=== PATIENT | female | born 1990 | race Caucasian/White ===

== ENCOUNTER 2018-08-09 18:10 | Emergency (ER) | payer OTHER ==
[2018-08-09 18:16] VITALS: BP 109/70; PULSE 88; TEMP 98.8; BMI 25.4
--- NOTE | 2018-08-09 19:33 | PDOC ---
History of Present Illness - General Chief Complaint: Vaginal Bleeding Stated Complaint: 13 WEEKS -BLEEDING Time Seen by Provider: 08/09/18 19:32 History Source: Patient - History of Present Illness Initial Comments: 08/09/18 19:51 28 yr old woman A0 at 13wks (LMP May 08 2018) presents with 1 week of intermittent vaginal bleeding, most recent episode 3 hours ago consisting of clots and bright red blood a/w left lower abdominal cramping. She was seen by ob /infrastructure consultant's office last week and testing for "vaginal infections" and told them about the bleeding, she was told everything was normal but the bleeding today was more than previous so she presented to the ED. She had heart testing last week where she heard the heart beat. denies trauma, fevers, n/v, constipation, diarrhea, cough, sick contacts, headaches, LE edema, dizziness. Prenatals are her only medications. Surghx: denies Sochx: denies smoking, etoh and illicit drug use Pmhx: diet controlled HLD Fmhx: father with DM Allergies: NKDA Past History - Travel Traveled outside of the country in the last 30 days: No Close contact w/someone who was outside of country & ill: No - Past Medical History Allergies/Adverse Reactions: Allergies Allergy/AdvReac Type Severity Reaction Status Date / Time No Known Allergies Allergy Verified 08/09/18 18:16 COPD: No - Suicide/Smoking/Psychosocial Hx Smoking History: Never smoked Review of Systems - Review of Systems Constitutional: No: Diaphoresis, Fever, Loss of Appetite HEENTM: No: Tinnitus, Difficulty Swallowing Respiratory: No: Shortness of Breath, Productive cough Cardiac (ROS): No: Chest Pain, Edema, Lightheadedness, Palpitations, Chest Tightness ABD/GI: Yes: Abdominal cramping. No: Abdominal Distended, Constipated, Diarrhea , Difficulty Swallowing, Nausea, Poor Appetite, Poor Fluid Intake, Vomiting : No: Dysuria, Frequency, Flank Pain, Hematuria Musculoskeletal: No: Joint Pain, Muscle Pain, Muscle Weakness, Neck Pain Integumentary: No: Bruising, Lesions Neurological: No: Headache, Paresthesia, Weakness, Unsteady Gait, Dizziness *Physical Exam - Vital Signs Last Vital Signs Temp Pulse Resp BP Pulse Ox 98.8 F 88 18 109/70 100 08/09/18 18:13 02/16/19 18:13 08/09/18 18:13 08/09/18 18:13 08/09/18 18:13 - Physical Exam General Appearance: Yes: Appropriately Dressed HEENT: positive: EOMI, LAW, Pharynx Normal Neck: positive: Trachea midline, Supple. negative: Lymphadenopathy (R), Lymphadenopathy (L), Thyromegaly Respiratory/Chest: positive: Lungs Clear, Normal Breath Sounds. negative: Rales , Rhonchi, Wheezing Cardiovascular: positive: Regular Rhythm, Regular Rate. negative: Murmur Female Pelvic Exam: positive: normal external exam, vaginal bleeding (dark blood with clots) Gastrointestinal/Abdominal: positive: Normal Bowel Sounds. negative: Tenderness , Mass Musculoskeletal: negative: CVA Tenderness, Muscle Spasm, Vertebral Tenderness Extremity: negative: Calf Tenderness Neurologic: positive: Fully Oriented Moderate Sedation - Procedure Monitoring Vital Signs: Procedure Monitoring Vital Signs Temperature 98.8 F 08/09/18 18:13 Pulse Rate 88 08/09/18 18:13 Respiratory Rate 18 08/09/18 18:13 Blood Pressure 109/70 08/09/18 18:13 O2 Sat by Pulse Oximetry (%) 100 08/09/18 18:13 ED Treatment Course - LABORATORY CBC & Chemistry Diagram: 08/09/18 20:24 08/09/18 20:24 Medical Decision Making - Medical Decision Making 08/09/18 20:21 28 yr old woman @13weeks presents with 1 week of vaginal bleeding, crevical os open on vaginal exam with dark blood in vaginal vault. CBC, PT/INR, type and screen, beta-hcg, transvaginal ultrasound to check viability of /anemia/infection/coagulopathy incomplete vs inevitable high in differential at this time. 08/09/18 22:02 labs without anemia, normal coag studies, normal electrolytes and renal function. betahcg lower than expected for gestational age pending official ultrasound report. 08/09/18 22:16 imaging geographic information systems director report findings of transabdominal sono: There is a single intrauterine fetus. Estimated gestational age according to CRL would be 10weeks and 4 days however there is no cardiac activity visible. findings suggests demise. incidentally noted 2.1 cm anterior lower uterine fibroid. 08/09/18 22:48 reviewed labs and imaging findings. answered her and her 's questions to their satisfaction. provided support. pt requests to go home. states understanding of instructions to follow-up with Dr. Reynolds and return to hospital if any new symptoms develop. pt provided u/a as she was leaving, she will call tomorrow for results. *DC/Admit/Observation/Transfer Diagnosis at time of Disposition: Miscarriage - Discharge Dispostion Disposition: HOME Condition at time of disposition: Stable Decision to Admit order: No - Referrals Referrals: Kaye Reynolds [Primary Care Provider] - - Patient Instructions Printed Discharge Instructions: DI for Miscarriage Additional Instructions: You evaluated for vaginal bleeding with an ultrasound. A copy of the report has been provided to you. Please follow-up with Dr. Reynolds as soon as possible. If you develop worsening vaginal bleeding, fevers, chest pain, or any new symptoms please return to the hospital. Print Language: MALAGASY - Post Discharge Activity
--- NOTE | 2018-08-09 19:54 | PDOC ---
Attending Attestation - HPI HPI: 08/09/18 20:06 The patient is a 13 weeks 28 year old female A0, with no significant PMH, who presents to the emergency department with intermittent vaginal spotting for 1 week. The patient states the vaginal spotting was worse today approx 3 hours ago consisting of clots and bright red blood prompting the ED visit. The patient also endorses left sided abdominal cramping secondary to the vaginal spotting. The patient states she saw her NUCLEAR EQUIPMENT TEST ENGINEER Dr Reynolds last week for evaluation of the vaginal bleeding and was told her evaluation was normal. The patient denies any recent sick contacts or travel. Denies any injuries or trauma. The patient denies chest pain, shortness of breath, headache and dizziness. Denies fever, chills, nausea, vomit, diarrhea and constipation. Denies dysuria, frequency, urgency and hematuria. Allergies: NKA Past surgical history: No reported. Social history: No reported NUCLEAR EQUIPMENT TEST ENGINEER: Dr Reynolds Documentation prepared by Dimas Ortega, acting as medical office technology instructor for Lula Vieira MD. - Physicial Exam PE: 08/09/18 20:43 GENERAL: Awake, alert, and fully oriented, in no acute distress HEAD: No signs of trauma EYES: PERRLA, EOMI, sclera anicteric, conjunctiva clear ENT: Auricles normal inspection, hearing grossly normal, nares patent, oropharynx clear without exudates. Moist mucosa NECK: Normal ROM, supple, no lymphadenopathy, JVD, or masses LUNGS: Breath sounds equal, clear to auscultation bilaterally. No wheezes, and no crackles HEART: Regular rate and rhythm, normal S1 and S2, no murmurs, rubs or gallops ABDOMEN: Soft, nontender, normoactive bowel sounds. No guarding, no rebound. No masses PELVIC: (+) Cervical os open on exam. (+) Dark blood noted in vaginal vault. EXTREMITIES: Normal range of motion, no edema. No clubbing or cyanosis. No cords, erythema, or tenderness NEUROLOGICAL: Cranial nerves II through XII grossly intact. Normal speech, normal gait SKIN: Warm, Dry, normal turgor, no rashes or lesions noted. <Dimas Ortega - Last Filed: 08/09/18 20:43> - Resident Resident Name: Umang,Harshitha - ED Attending Attestation I have performed the following: I have examined & evaluated the patient, The case was reviewed & discussed with the resident, I agree w/resident's findings & plan - Medical Decision Making 08/09/18 20:28 Pt has an open outer cervical os on exam. She is and she should have a closed os, as she states that she never had a miscarriage or in the past.. This is likely inevitable . Pt will be sent for a sono. Pt's labs are pending. Her blood type is pending. She doesn't know what her blood type is. She thinks it may be O-pos. 08/09/18 22:45 Patient Name: CIPRIANO NELSON THIS IS A PRELIMINARY REPORT FROM [facility] [employer] DATE OF SERVICE: 2018-08-09 20:36:52 IMAGES: 79 EXAM: Transabdominal and transvaginal OB ultrasound HISTORY: Vaginal bleeding COMPARISON: None. FINDINGS: Transabdominal sonography was performed. There is a single intrauterine fetus. Estimated gestational age according to CRL would be 10 weeks and 4 days however there is no cardiac activity visible. Finding suggests demise. There is no free fluid. Ovary dimensions are 3.2 x 1.6 x 2.5 cm for the right ovary and 2.3 x 1.5 x 2.4 cm for the left ovary. Blood flow is demonstrated to both ovaries. Incidentally noted is a 2.1 cm anterior lower uterine fibroid. IMPRESSION: There is a single intrauterine fetus. Estimated gestational age according to CRL would be 10 weeks and 4 days however there is no cardiac activity visible. Findings suggest demise. THIS DOCUMENT HAS BEEN ELECTRONICALLY SIGNED 08/09/18 22:48 I spoke to kitchenhand sessions clerk who agrees that pt is stable for d/c and that she can go home and pass fetus and follow with PMD. 08/09/18 22:49 Blood type O-positive <Lula Vieira - Last Filed: 08/09/18 22:49>
[2018-08-09 20:38] LABS: BASO % 0.7 % (0-2.0); EOS % 0.9 % (0-4.5); HEMATOCRIT 41.5 % (32.4-45.2); HEMOGLOBIN 14.5 GM/dL (10.7-15.3); LYMPH % 26.6 % (8-40); MCH 30.5 pg (25.7-33.7); MCHC 34.9 g/dl (32.0-36.0); MEAN CELL VOLUME 87.2 fl (80-96); MEAN PLT VOLUME 7.9 fl (7.5-11.1); MONO % 6.5 % (3.8-10.2); NEUT % 65.3 % (42.8-82.8); PLATELET COUNT 230 K/MM3 (134-434); RBC 4.76 M/mm3 (3.60-5.2); RDW 13.4 % (11.6-15.6)
[2018-08-09 20:51] LABS: PROTHROMBIN TIME (PATIENT) 11.8 SEC (9.7-13.0)
[2018-08-09 21:09] LABS: ALBUMIN 3.9 g/dl (3.4-5.0); ALK PHOS 86 U/L (45-117); ANION GAP 8 MMOL/L (8-16); BILIRUBIN,TOTAL 0.2 mg/dL (0.2-1); BLOOD UREA NITROGEN 12 mg/dL (7-18); CALCIUM 9.1 mg/dL (8.5-10.1); CHLORIDE 104 mmol/L (98-107); CO2 25 mmol/L (21-32); CREATININE 0.5 mg/dL (0.55-1.3); GLUCOSE,RANDOM 87 mg/dL (74-106); POTASSIUM 4.1 mmol/L (3.5-5.1); SGOT/AST 14 U/L (15-37); SGPT/ALT 22 U/L (13-61); SODIUM 136 mmol/L (136-145); TOT PROT 7.8 g/dl (6.4-8.2)
[2018-08-09 22:59] LABS: URINE APPEARANCE SLCLOUDY; URINE BILIRUBIN NEGATIVE (<2.0 mg/dL); URINE COLOR YELLOW; URINE GLUCOSE (UA) NEGATIVE (NEGATIVE); URINE KETONE NEGATIVE (NEGATIVE); URINE LEUK ESTERASE NEGATIVE (NEGATIVE); URINE NITRITE NEGATIVE (NEGATIVE); URINE PROTEIN 1+ (NEGATIVE); URINE UROBILINOGEN NEGATIVE mg/dL (0.2-1.0)
[2018-08-09 23:08] LABS: EPI CELLS RARE /HPF (FEW); URINE MUCUS RARE
== END 2018-08-09 22:44 | disposition home or self-care (01) ==
LOC: JER 18:10
DX: O26.891 Other specified pregnancy related conditions, first trimester (principal); O02.1 Missed abortion; O34.11 Maternal care for benign tumor of corpus uteri, first trimester; D25.9 Leiomyoma of uterus, unspecified; Z3A.13 13 weeks gestation of pregnancy
CPT/HCPCS: 36415; 76817-TC; 80053; 81003; 81015; 84702; 85025; 85610; 86850; 86900; 86901; 99282-25

== ENCOUNTER 2018-08-10 15:08 | Emergency (ER) | payer OTHER ==
[2018-08-10 15:25] VITALS: BP 107/60; TEMP 98; BMI 25.4
--- NOTE | 2018-08-10 16:36 | PDOC ---
History of Present Illness - General Chief Complaint: Vaginal Bleeding Stated Complaint: VAG BLEED Time Seen by Provider: 08/10/18 16:34 - History of Present Illness Initial Comments: A0 currently 13 weeks with no other significant PMH presenting with vaginal bleeding. Patient was discharged from this ED yesterday. TVUS yesterday had findings suggesting demise. B-hcg was also lower than appropiate for gestational age. Patient states that since she was discharged around midnight, she went home and around 1am felt significant crampy abdominal pain and nausea after which she passed clots and tissue, likely consistent with products of conception. Patient reports one episode of nonbloody nonbilious vomiting. She is unable to quantify how much vaginal bleeding she has had because since the bleeding was so significant, she used toilet paper which she changed about every three minutes. Denies weakness, dizziness, vision changes, chest pain, or shortness of breath. She currently has mild lower abdominal tenderness. Past History - Past Medical History Allergies/Adverse Reactions: Allergies Allergy/AdvReac Type Severity Reaction Status Date / Time No Known Allergies Allergy Verified 08/10/18 15:24 Home Medications: Ambulatory Orders NK [No Known Home Medication] 08/10/18 COPD: No - Suicide/Smoking/Psychosocial Hx Smoking History: Never smoked Review of Systems - Review of Systems Comments:: Constitutional: no fever, no chills HEENT: no throat pain, no dysphagia Cardiovascular: no chest pain, no palpitations Respiratory: no cough, no shortness of breath Gastrointestinal: +abdominal pain, +vomiting Genitourinary: no dysuria, no frequency Musculoskeletal: no myalgia, no arthralgia Skin: no rash, no itching Neurologic: no weakness, no dizziness *Physical Exam - Vital Signs Last Vital Signs Temp Pulse Resp BP Pulse Ox 98 F 108 H 20 107/60 100 08/10/18 15:24 08/10/18 15:24 08/10/18 15:24 08/10/18 15:24 08/10/18 15:24 - Physical Exam Comments: General: Awake, alert, and fully oriented, in no acute distress Head: No signs of trauma Eyes: EOMI, sclera anicteric ENT: Moist mucus membranes Neck: Normal ROM, supple Lungs: Lungs clear, Normal breath sounds Cardio: Regular rhythm, S1 and S2 present Abdomen: Soft, nontender. No guarding, no rebound, no masses Extremities: Normal range of motion, Distal pulses present SKIN: Warm, Dry, normal turgor Neurologic: Cranial nerves II through XII grossly intact. Normal speech Pelvic: External genitalia with blood at vaginal opening. Vaginal vault is with blood. Cervix is of normal color without lesion. The os is closed. Uterus is noted to be of normal size and nontender. No cervical motion tenderness is seen. No masses are palpated. The adnexa are without masses or tenderness. Moderate Sedation - Procedure Monitoring Vital Signs: Procedure Monitoring Vital Signs Temperature 98 F 08/10/18 15:24 Pulse Rate 108 H 08/10/18 15:24 Respiratory Rate 20 08/10/18 15:24 Blood Pressure 107/60 08/10/18 15:24 O2 Sat by Pulse Oximetry (%) 100 08/10/18 15:24 ED Treatment Course - LABORATORY CBC & Chemistry Diagram: 08/10/18 17:30 Medical Decision Making - Medical Decision Making A0 currently 13 weeks with no other significant PMH presenting with vaginal bleeding. DDX including but not limited to spontaneous : complete vs incomplete; endometritis; ectopic Difficult to quantify amount of vaginal bleeding, CBC ordered to check H&H Patient is Rh+ TVUS on 08/09/18: "There is a single intrauterine fetus. Estimated gestational age according to CRL would be 10weeks and 4 days however there is no cardiac activity visible. findings suggests demise. incidentally noted 2.1 cm anterior lower uterine fibroid." Repeat TVUS to determine complete vs incomplete 08/10/18 17:38 TVUS report from imaging parts counter salesperson: 1. No sonographic evidence of retained products of conception. 2. Small uterine nodule which statistically most likely represents a fibroid. Hgb 13.0 (down from 14.5 yesterday) Plan to discharge 08/10/18 18:18 *DC/Admit/Observation/Transfer Diagnosis at time of Disposition: Miscarriage - Discharge Dispostion Disposition: HOME Condition at time of disposition: Stable - Referrals Referrals: Kaye Reynolds [Primary Care Provider] - - Patient Instructions Printed Discharge Instructions: DI for Miscarriage Additional Instructions: You were seen in the Emergency Department for vaginal bleeding due to miscarriage. Follow-up with your biology teacher physician, Dr. Reynolds, within two days. Call and make an appointment. You can take [id number] tylenol for pain. Follow the instructions on the medication bottle. Return to the Emergency Department if you experience: -heavy bleeding (more than two pads per hour for two hours) -severe pain -lightheadedness -shortness of breath -high fever -any other concerning symptoms - Post Discharge Activity
[2018-08-10 17:48] LABS: BASO % 0.4 % (0-2.0); EOS % 0.4 % (0-4.5); HEMATOCRIT 37.5 % (32.4-45.2); LYMPH % 23.1 % (8-40); MCH 30.6 pg (25.7-33.7); MCHC 34.7 g/dl (32.0-36.0); MEAN CELL VOLUME 88.1 fl (80-96); MEAN PLT VOLUME 8.1 fl (7.5-11.1); MONO % 5.1 % (3.8-10.2); PLATELET COUNT 238 K/MM3 (134-434); RBC 4.26 M/mm3 (3.60-5.2); RDW 13.4 % (11.6-15.6); WHITE BLOOD COUNT 12.1 K/mm3 (4.0-10.0)
--- NOTE | 2018-08-10 18:30 | PDOC ---
Attending Attestation - Resident Resident Name: Trupti Tolentino - ED Attending Attestation I have performed the following: I have examined & evaluated the patient, The case was reviewed & discussed with the resident, I agree w/resident's findings & plan, Exceptions are as noted - HPI HPI: 08/10/18 18:36 Reviewed HPI - Physicial Exam PE: 08/10/18 18:36 Reviewed PE - Medical Decision Making 08/10/18 18:36 28 years old with demise yesterday now with active miscarriage has been passing clots all day long no significant abdominal pain no fever no chills no significant dizziness lightheadedness Bleeding was moderate earlier now slowing Repeat ultrasound demonstrates complete AB H&H stable from yesterday Findings discussed with patient she'll follow-up with her MEDICAL REVIEWER in 1-2 days she 'll return to ED for any fever severe abdominal pain or for any concerns Findings, the need for follow-up and strict return instructions discussed with patient.
[2018-08-10 18:53] VITALS: PULSE 88
== END 2018-08-10 18:52 | disposition home or self-care (01) ==
LOC: JER 15:08
DX: O26.891 Other specified pregnancy related conditions, first trimester (principal); O02.1 Missed abortion; Z3A.13 13 weeks gestation of pregnancy
CPT/HCPCS: 36415; 76817-TC; 85025; 99283-25

== ENCOUNTER 2018-08-19 15:01 | Emergency (ER) | payer OTHER ==
[2018-08-19 15:20] VITALS: BP 109/81; PULSE 84; TEMP 98.7; BMI 24.9
--- NOTE | 2018-08-19 15:23 | PDOC ---
Rapid Medical Evaluation Chief Complaint: Vaginal Bleeding Medical Evaluation: Allergies Allergy/AdvReac Type Severity Reaction Status Date / Time No Known Allergies Allergy Verified 08/10/18 15:24 I have performed a brief in-person evaluation of this patient. The patient presents with a chief complaint of: Was seen here last week for miscarriage (had complete ) and had US done showing no RPOC; however, followed up with DISTRICT OPERATIONS MANAGER today and states patient with likely RPOC and may require D&C; patient mentions having vag bleeding x 1 week Pertinent physical exam findings: In NAD I have ordered the following: Labs, Ultrasound The patient will proceed to the ED for further evaluation. 08/19/18 15:20 Discharge Disposition - Discharge Dispostion Condition at time of disposition: Stable - Referrals - Patient Instructions - Post Discharge Activity
[2018-08-19 15:52] LABS: BASO % 0.4 % (0-2.0); EOS % 1.4 % (0-4.5); HEMATOCRIT 38.3 % (32.4-45.2); HEMOGLOBIN 13.4 GM/dL (10.7-15.3); LYMPH % 25.1 % (8-40); MCH 30.6 pg (25.7-33.7); MEAN CELL VOLUME 87.3 fl (80-96); MEAN PLT VOLUME 7.9 fl (7.5-11.1); MONO % 6.7 % (3.8-10.2); NEUT % 66.4 % (42.8-82.8); PLATELET COUNT 278 K/MM3 (134-434); RBC 4.39 M/mm3 (3.60-5.2); RDW 13.1 % (11.6-15.6); WHITE BLOOD COUNT 11.2 K/mm3 (4.0-10.0)
[2018-08-19 16:11] LABS: ANION GAP 6 MMOL/L (8-16); BLOOD UREA NITROGEN 10 mg/dL (7-18); CALCIUM 9.4 mg/dL (8.5-10.1); CHLORIDE 104 mmol/L (98-107); CO2 28 mmol/L (21-32); CREATININE 0.5 mg/dL (0.55-1.3); GLUCOSE,RANDOM 89 mg/dL (74-106); POTASSIUM 4.4 mmol/L (3.5-5.1); SODIUM 138 mmol/L (136-145)
--- NOTE | 2018-08-19 16:40 | PDOC ---
History of Present Illness - General Chief Complaint: Vaginal Bleeding Stated Complaint: SENT BY PCP/VAGINAL BLEEDING Time Seen by Provider: 08/19/18 15:20 History Source: Patient Exam Limitations: No Limitations - History of Present Illness Initial Comments: 08/19/18 16:47 28 yr old woman A1 s/p spontaneous miscarriage on 08/09/2018@10wks sent by outpatient shop hand() with concern for retained gestational sac products. pt still has ongoing vaginal bleeding a/w LLQ pain. the bleeding is much less now than when she first presented to the ED last week, with no bleeding for several hours, using 1 pantyliner as needed throughout the day. available passed tissue brought in by the patient to her stumper feller's office was sent for pathology, pathology reported that the sent tissue did not contain any parts. as per stumper feller, the brought some products for burial. denies fever, chest pain, cough, dysuria, nausea, vomiting, chills, constipation , diarrhea. ultrasound completed in the office this morning showed thickened lining. dr. Reynolds requests repeat ultrasound and evaluation by inpatient route sales delivery driver for D&C Past History - Travel Traveled outside of the country in the last 30 days: No Close contact w/someone who was outside of country & ill: No - Past Medical History Allergies/Adverse Reactions: Allergies Allergy/AdvReac Type Severity Reaction Status Date / Time No Known Allergies Allergy Verified 08/10/18 15:24 Home Medications: Ambulatory Orders NK [No Known Home Medication] 08/10/18 COPD: No Diabetes: No GI Disorders: No - Surgical History Cardiac Surgery: No GI Surgery: No - Reproductive History Is Patient Now?: No (#): 1 Para: 0 Spontaneous : 1 Uterine Fibroids: Yes - Immunization History Immunization Up to Date: No - Suicide/Smoking/Psychosocial Hx Smoking History: Never smoked Have you smoked in the past 12 months: No Information on smoking cessation initiated: No Hx Alcohol Use: No Drug/Substance Use Hx: No Review of Systems - Review of Systems Constitutional: Yes: See HPI HEENTM: Yes: See HPI Respiratory: Yes: See HPI ABD/GI: Yes: See HPI : Yes: See HPI *Physical Exam - Vital Signs Last Vital Signs Temp Pulse Resp BP Pulse Ox 98.7 F 84 18 109/81 98 08/19/18 15:17 08/19/18 15:17 08/19/18 15:17 08/19/18 15:17 08/19/18 15:17 - Physical Exam General Appearance: Yes: Appropriately Dressed HEENT: positive: EOMI, Normal Voice, Other (moist mucous membranes) Neck: positive: Trachea midline, Normal Thyroid, Supple Respiratory/Chest: positive: Lungs Clear, Normal Breath Sounds Cardiovascular: positive: Regular Rhythm, Regular Rate. negative: Murmur Female Pelvic Exam: positive: normal external exam, cervical os closed, vaginal bleeding Gastrointestinal/Abdominal: positive: Normal Bowel Sounds, Tender (LLQ), Flat. negative: Distended, Guarding, Rebound Musculoskeletal: negative: CVA Tenderness Extremity: negative: Pedal Edema, Swelling, Calf Tenderness, Erythema Integumentary: positive: Dry, Warm Neurologic: positive: Fully Oriented, Alert Moderate Sedation - Procedure Monitoring Vital Signs: Procedure Monitoring Vital Signs Temperature 98.7 F 08/19/18 15:17 Pulse Rate 84 08/19/18 15:17 Respiratory Rate 18 08/19/18 15:17 Blood Pressure 109/81 08/19/18 15:17 O2 Sat by Pulse Oximetry (%) 98 08/19/18 15:17 ED Treatment Course - LABORATORY CBC & Chemistry Diagram: 08/19/18 15:35 08/19/18 15:26 - ADDITIONAL ORDERS Additional order review: Laboratory Results 08/19/18 08/19/18 15:35 15:26 WBC 11.2 H RBC 4.39 Hgb 13.4 Hct 38.3 MCV 87.3 MCH 30.6 MCHC 35.0 RDW 13.1 Plt Count 278 MPV 7.9 Absolute Neuts (auto) 7.4 Neutrophils % 66.4 Lymphocytes % 25.1 Monocytes % 6.7 Eosinophils % 1.4 D Basophils % 0.4 Nucleated RBC % 0 Sodium 138 Potassium 4.4 Chloride 104 Carbon Dioxide 28 Anion Gap 6 L BUN 10 Creatinine 0.5 L Creat Clearance w eGFR > 60 Random Glucose 89 Calcium 9.4 Beta HCG, Quant 35.7 08/19/18 15:35 RBC 4.39 MCV 87.3 MCHC 35.0 RDW 13.1 MPV 7.9 Neutrophils % 66.4 Lymphocytes % 25.1 Monocytes % 6.7 Eosinophils % 1.4 D Basophils % 0.4 Medical Decision Making - Medical Decision Making 08/19/18 16:57 28 yr old woman s/p miscarriage one week ago sent by outpatient shop hand for concern of retained gestational sac products. Dr. Reynolds request reports and lab results to be faxed to [phone]. 08/19/18 17:40 labs with mild leucocytosis, likely reactive. no anemia. Beta-hcg significantly decreased since previous. pending ultrasound. u/s without any significant findings reviewed labs and reports with patients, answered all her questions to her satisfaction. I faxed the labs, current u/s report and previos u/s reports to Dr. Reynolds's office *DC/Admit/Observation/Transfer Diagnosis at time of Disposition: Vaginal bleeding - Discharge Dispostion Disposition: HOME Condition at time of disposition: Stable Decision to Admit order: No - Referrals Referrals: Kaye Reynolds [Non Staff, Medical] - - Patient Instructions Printed Discharge Instructions: DI for Vaginal Bleeding Additional Instructions: You were seen today for vaginal bleeding. A copy of your results has been provided for you and faxed to Dr. Reynolds's office. Please see Dr. Reynolds for follow-up as per her instructions. If your symptoms worsen or you develop any new symptoms please return to the hospital. - Post Discharge Activity
--- NOTE | 2018-08-19 18:19 | PDOC ---
Attending Attestation - HPI HPI: 08/19/18 18:35 The patient is a 28 year old A1 female with recent spontaneous miscarriage on 08/09/18 at 10 weeks who presents to the emergency department for evaluation of concern for RPOC. Patient reports vaginal bleeding with associated left lower quadrant abdominal pain. Patient reports passed tissue was sent to her gynecologists office to be sent to pathology. She states she had an ultrasound completed in her OBGYNs office this morning which revealed thickened lining. Patient states that her OB Dr. Reynolds wants her to be evaluated for possible D&C. The patient denies chest pain, shortness of breath, cough, fever, chills, nausea , vomiting, constipation, and diarrhea. - Medical Decision Making 08/19/18 18:[address] Rosas who agrees the patient should follow up with her OBGYN. Documentation prepared by Antonella Alejandre, acting as biomedical engineering aide for Gabi Carrasco MD. <Antonella Alejandre - Last Filed: 08/19/18 18:35> - Resident Resident Name: Alejandra Heck - ED Attending Attestation I have performed the following: I have examined & evaluated the patient, The case was reviewed & discussed with the resident, I agree w/resident's findings & plan, Exceptions are as noted - Physicial Exam PE: 08/19/18 18:54 wnwd 28 yo female referred by her learning support assistant for pelvic US and ob consult head ncat neck supple lungs cta b/l cvs [id number] abd flat,nontender pelvic exam done by Dr Heck, no significant bleeding,no clots ext no edema skin warm and dry neuro axox3,ambulatory psych anxious - Medical Decision Making 08/19/18 18:19 this 28 yo female A1 and had a mscarriage on 08/09/18 pt sent in by her auto leasing manager because she did a bedside ultrasound and saw an endometrial stripe and sent her for further eval because of concern for retained products 08/19/18 18:52 The official ultrasound report shows that there is a nonspecific mildly heterogeneous fluid in the endometrial canal. There is no evidence of ovarian torsion, there is unremarkable, there is a 2 cm intramural myoma within the uterine body and there is a mildly thickened endometrium measuring 0.7. but no concern for retained products Beta-hCG was only [address] Bose who said that this patient does not require dilatation and curettage and the patient should follow-up with her HEATER MECHANIC <Gabi Carrasco - Last Filed: 08/19/18 18:56>
== END 2018-08-19 19:15 | disposition home or self-care (01) ==
LOC: JER 15:01
DX: O03.89 Complete or unspecified spontaneous abortion with other complications (principal); O03.6 Delayed or excessive hemorrhage following complete or unspecified spontaneous abortion
CPT/HCPCS: 36415; 76817-TC; 80048; 84702; 85025; 86850; 86900; 86901; 99283-25

== ENCOUNTER 2018-09-02 18:27 | Emergency (ER) | payer OTHER ==
--- NOTE | 2018-09-02 18:58 | PDOC ---
Rapid Medical Evaluation Time Seen by Provider: 09/02/18 18:55 Medical Evaluation: Allergies Allergy/AdvReac Type Severity Reaction Status Date / Time No Known Allergies Allergy Verified 08/10/18 15:24 09/02/18 18:56 I have performed a brief in-person evaluation of this patient. The patient presents with a chief complaint of: vaginal bleeding with lower back pain x3 weeks s/p SA Pertinent physical exam findings: deferred I have ordered the following: labs, urine The patient will proceed to the ED for further evaluation. Discharge Disposition - Diagnosis Vaginal bleeding - Referrals - Patient Instructions - Post Discharge Activity
[2018-09-02 19:01] VITALS: BP 126/83; PULSE 51; TEMP 98.9; BMI 27.5
[2018-09-02 20:21] LABS: BASO % 0.5 % (0-2.0); EOS % 1.5 % (0-4.5); HEMATOCRIT 37.6 % (32.4-45.2); LYMPH % 32.1 % (8-40); MCH 29.9 pg (25.7-33.7); MCHC 34.7 g/dl (32.0-36.0); MEAN CELL VOLUME 86.1 fl (80-96); MEAN PLT VOLUME 8.2 fl (7.5-11.1); MONO % 7.8 % (3.8-10.2); NEUT % 58.1 % (42.8-82.8); PLATELET COUNT 244 K/MM3 (134-434); RBC 4.37 M/mm3 (3.60-5.2); RDW 13.2 % (11.6-15.6); WHITE BLOOD COUNT 9.6 K/mm3 (4.0-10.0)
[2018-09-02 20:41] LABS: INR 1.12 (0.83-1.09); PROTHROMBIN TIME (PATIENT) 13.2 SEC (9.7-13.0)
[2018-09-02 20:54] LABS: URINE APPEARANCE CLOUDY; URINE BILIRUBIN NEGATIVE (<2.0 mg/dL); URINE COLOR RED; URINE GLUCOSE (UA) NEGATIVE (NEGATIVE); URINE KETONE NEGATIVE (NEGATIVE); URINE LEUK ESTERASE TRACE (NEGATIVE); URINE NITRITE NEGATIVE (NEGATIVE); URINE PROTEIN 2+ (NEGATIVE); URINE UROBILINOGEN NEGATIVE mg/dL (0.2-1.0)
[2018-09-02 20:56] LABS: ALK PHOS 90 U/L (45-117); ANION GAP 5 MMOL/L (8-16); BILIRUBIN,TOTAL 0.3 mg/dL (0.2-1); BLOOD UREA NITROGEN 6 mg/dL (7-18); CALCIUM 8.6 mg/dL (8.5-10.1); CHLORIDE 106 mmol/L (98-107); CO2 27 mmol/L (21-32); CREATININE 0.6 mg/dL (0.55-1.3); GLUCOSE,RANDOM 88 mg/dL (74-106); POTASSIUM 3.9 mmol/L (3.5-5.1); SGOT/AST 12 U/L (15-37); SGPT/ALT 20 U/L (13-61); SODIUM 138 mmol/L (136-145); TOT PROT 7.7 g/dl (6.4-8.2)
[2018-09-02 21:03] LABS: EPI CELLS RARE /HPF (FEW)
--- NOTE | 2018-09-02 21:22 | PDOC ---
History of Present Illness - General Chief Complaint: Vaginal Bleeding Stated Complaint: VAGINAL BLEEDING Time Seen by Provider: 09/02/18 18:55 History Source: Patient Exam Limitations: No Limitations Past History - Past Medical History Allergies/Adverse Reactions: Allergies Allergy/AdvReac Type Severity Reaction Status Date / Time No Known Allergies Allergy Verified 09/02/18 18:58 Home Medications: Ambulatory Orders Tranexamic Acid 650 mg PO BID #10 tablet 09/02/18 COPD: No Diabetes: No GI Disorders: No - Surgical History Cardiac Surgery: No GI Surgery: No - Reproductive History (#): 1 Para: 0 Spontaneous : 1 Uterine Fibroids: Yes - Immunization History Immunization Up to Date: No - Suicide/Smoking/Psychosocial Hx Smoking History: Never smoked Have you smoked in the past 12 months: No Hx Alcohol Use: No Drug/Substance Use Hx: No *Physical Exam - Vital Signs Last Vital Signs Temp Pulse Resp BP Pulse Ox 98.9 F 51 L 16 126/83 99 09/02/18 18:58 09/02/18 18:58 09/02/18 18:58 09/02/18 18:58 09/02/18 18:58 - Physical Exam General Appearance: No: Apparent Distress Respiratory/Chest: positive: Lungs Clear, Normal Breath Sounds. negative: Respiratory Distress Cardiovascular: positive: Regular Rhythm, Regular Rate, S1, S2. negative: Murmur Female Pelvic Exam: positive: normal external exam, vaginal bleeding. negative : adnexal tenderness Gastrointestinal/Abdominal: positive: Normal Bowel Sounds, Soft. negative: Tender, Distended, Guarding, Rebound Neurologic: positive: Fully Oriented, Alert, Normal Mood/Affect Moderate Sedation - Procedure Monitoring Vital Signs: Procedure Monitoring Vital Signs Temperature 98.9 F 09/02/18 18:58 Pulse Rate 51 L 09/02/18 18:58 Respiratory Rate 16 09/02/18 18:58 Blood Pressure 126/83 09/02/18 18:58 O2 Sat by Pulse Oximetry (%) 99 09/02/18 18:58 ED Treatment Course - LABORATORY CBC & Chemistry Diagram: 09/02/18 20:02 09/02/18 20:01 - ADDITIONAL ORDERS Additional order review: Laboratory Results 09/02/18 09/02/18 09/02/18 20:32 20:02 20:01 PT with INR 13.20 H INR 1.12 H Sodium 138 Potassium 3.9 Chloride 106 Carbon Dioxide 27 Anion Gap 5 L BUN 6 L Creatinine 0.6 Creat Clearance w eGFR > 60 Random Glucose 88 Calcium 8.6 Total Bilirubin 0.3 AST 12 L ALT 20 Alkaline Phosphatase 90 Total Protein 7.7 Albumin 4.0 Beta HCG, Quant 3.2 Urine Color Red Urine Appearance Cloudy Urine pH 8.0 D Ur Specific [place] 1.015 Urine Protein 2+ H Urine Glucose (UA) Negative Urine Ketones Negative Urine Blood 3+ H Urine Nitrite Negative Urine Bilirubin Negative Urine Urobilinogen Negative Ur Leukocyte Esterase Trace Urine WBC (Auto) 15 Urine RBC (Auto) 3609 Ur Epithelial Cells Rare 09/02/18 20:02 RBC 4.37 MCV 86.1 MCHC 34.7 RDW 13.2 MPV 8.2 Neutrophils % 58.1 Lymphocytes % 32.1 D Monocytes % 7.8 Eosinophils % 1.5 Basophils % 0.5 Medical Decision Making - Medical Decision Making 28 y/o F with no sig PMH, recent miscarriage 08/10 (was around 10 weeks at the time) presents with vaginal bleeding since miscarriage, worsening over the past week. Patient saw her [facility] last week, who started her on Ampicillin and Fluconazole (1 time dose) for ?infection. Patient was seen in ED 2 weeks ago and had pelvic US which showed no RPOC. Patient denies fever, sob, cp, abd pain, n/v, dysuria. Labs obtained and unremarkable Bhcg has trended down to 3 Discussed case with [facility], Dr. Kay - states it could be start of patient' s menstrual cycle - recommends starting patient on Lysteda 650 TID for 3-5 days 09/02/18 21:19 *DC/Admit/Observation/Transfer Diagnosis at time of Disposition: Vaginal bleeding - Discharge Dispostion Disposition: HOME Condition at time of disposition: Stable Decision to Admit order: No - Prescriptions Prescriptions: Tranexamic Acid 650 mg PO BID #10 tablet - Referrals Referrals: Kaye Reynolds [Primary Care Provider] - 3 days - Patient Instructions Printed Discharge Instructions: DI for Vaginal Bleeding Additional Instructions: Thank you for choosing [facility]. It was a pleasure taking care of you. Your level (beta-hcg) is going down You were started on a new medication, Lysteda, to help stop your bleeding. If your bleeding stops in 3 days, you can stop the medication. Otherwise, finish the 5 day course. Please follow-up with your [facility] in 3 days. Return to the Emergency Department if your symptoms worsen or persist or have other concerning symptoms. - Post Discharge Activity
== END 2018-09-02 22:57 | disposition home or self-care (01) ==
LOC: JER 18:27
DX: N93.8 Other specified abnormal uterine and vaginal bleeding (principal)
CPT/HCPCS: 36415; 80053; 81003; 81015; 84702; 85025; 85610; 87086; 87186; 99282-25

== ENCOUNTER 2020-06-22 18:10 | Inpatient (IN) | payer OTHER ==
[2020-06-22 20:25] VITALS: BP 117/75; PULSE 82; TEMP 97.3
== END 2020-06-24 03:00 | disposition home or self-care (01) | DRG 566 ==
LOC: JDEL 18:10 → JLDR 06-24 03:00
PROVIDERS: ADMIT Internal Medicine; ATTEND Family Medicine
PROC: 4A1HXCZ Monitoring of Products of Conception, Cardiac Rate, External Approach (ICD-10-PCS; principal; 2020-06-22)
PROC: BY4FZZZ Ultrasonography of Third Trimester, Single Fetus (ICD-10-PCS; 2020-06-22)
DX: O26.893 Other specified pregnancy related conditions, third trimester (principal); Z3A.37 37 weeks gestation of pregnancy
CPT/HCPCS: 59025; 76805-25; 76819-TC; G0463-25

== ENCOUNTER 2020-06-24 03:00 | Inpatient (IN) | payer OTHER ==
[~2020-06-24 03:00] MED LIST: AMPICILLIN - 2 GM in SODIUM CHLORIDE 100 ML IVPB ONE
[2020-06-24 06:59] VITALS: BMI 28.8
[2020-06-24] MEDS: DEXTROSE 5%-LACTATED RINGERS 1,000 ML IV SCH (07:00)
[2020-06-24] MEDS ORDERED: AMPICILLIN SODIUM 1 GM VIAL ONE ×2 (07:37→14:09)
[2020-06-24] MEDS ORDERED: OXYTOCIN 20 UNITS in 0.9% NS 20 UNIT/1,000 ML INFUS.BAG IV ONE (07:37)
[2020-06-24] MEDS ORDERED: PROMETHAZINE HCL 25 MG/1 ML VIAL IVPB ONE (08:00)
[2020-06-24] MEDS ORDERED: BUTORPHANOL TARTRATE 1 MG/ML VIAL IVPB ONE (08:00)
[2020-06-24] MEDS ORDERED: BUTORPHANOL TARTRATE 2 MG/ML VIAL ONE (08:07)
[2020-06-24] MEDS ORDERED: PROMETHAZINE HCL 25 MG/1 ML VIAL ONE (08:08)
[2020-06-24 08:28] LABS: BASO % 0.3 % (0-2.0); EOS % 0.8 % (0-4.5); HEMATOCRIT 41.9 % (32.4-45.2); HEMOGLOBIN 14.6 GM/dL (10.7-15.3); LYMPH % 35.1 % (8-40); MCH 30.7 pg (25.7-33.7); MCHC 34.7 g/dl (32.0-36.0); MEAN CELL VOLUME 88.3 fl (80-96); MEAN PLT VOLUME 9.2 fl (7.5-11.1); MONO % 9.3 % (3.8-10.2); NEUT % 54.5 % (42.8-82.8); PLATELET COUNT 225 K/MM3 (134-434); RBC 4.74 M/mm3 (3.60-5.2); RDW 13.5 % (11.6-15.6); WHITE BLOOD COUNT 5.7 K/mm3 (4.0-10.0)
[2020-06-24 08:37] LABS: INR 0.84 (0.83-1.09); PROTHROMBIN TIME (PATIENT) 10.2 SEC (9.7-13.0)
[2020-06-24 08:40] LABS: ACTIVATED PTT 27.1 SECONDS (25.2-36.5)
[2020-06-24 08:50] LABS: POTASSIUM 4.3 mmol/L (3.5-5.1)
[2020-06-24 08:53] LABS: CALCIUM 8.4 mg/dL (8.5-10.1)
[2020-06-24 08:56] LABS: CREATININE 0.4 mg/dL (0.55-1.3)
[2020-06-24] MEDS: AMPICILLIN - 1 GM in SODIUM CHLORIDE 100 ML IVPB SCH ×3 (10:00→14:10)
[2020-06-24] MEDS ORDERED: PCA PUMP NR ONE (10:36)
[2020-06-24] MEDS ORDERED: FENTANYL/BUPIVACAINE/NS/PF - PCEA - 50 ML DISP.SYRIN EP ONE (10:36)
[2020-06-24] MEDS ORDERED: PROMETHAZINE HCL 25 MG/1 ML VIAL IVPUSH PRN (10:41)
[2020-06-24] MEDS ORDERED: ONDANSETRON 4 MG/2 ML VIAL IVPUSH PRN (10:41)
[2020-06-24] MEDS ORDERED: BUPIVACAINE HCL/PF 0.25% (2.5MG/ML) 10 ML VIAL ONE (10:45)
[2020-06-24] MEDS ORDERED: LACTATED RINGERS SOLUTION 1,000 ML IV SCH (10:45)
[2020-06-24] MEDS ORDERED: OXYTOCIN 30 UNITS in 0.9% NS 30 UNIT/500 ML INFUS.BAG IVPB ONE (11:23)
[2020-06-24] MEDS ORDERED: OXYTOCIN 30 UNITS in 0.9% NS 30 UNIT/500 ML INFUS.BAG IVPB SCH (11:30)
[2020-06-24] MEDS ORDERED: BISACODYL 10 MG SUPP.RECT RC PRN (14:52)
[2020-06-24] MEDS ORDERED: BENZOCAINE 28 GM HEMORRHOIDAL OINTMENT TP PRN (14:52)
[2020-06-24] MEDS ORDERED: BENZOCAINE 20% 57 GM BOTTLE TP PRN (14:52)
[2020-06-24] MEDS ORDERED: WITCH HAZEL 50% (TUCKS) 40 PAD/JAR PAD TP PRN (14:52)
[2020-06-24] MEDS ORDERED: D5W-LR W/ 20 UNITS OXYTOCIN 1,000 ML IV SCH (15:00)
[2020-06-24] MEDS ORDERED: OXYTOCIN 20 UNITS in 0.9% NS 20 UNIT/1,000 ML INFUS.BAG IV SCH (15:15)
[2020-06-24] MEDS ORDERED: NALOXONE HCL 0.4 MG/ML VIAL IVPUSH PRN (16:44)
[2020-06-24] MEDS ORDERED: FENTANYL/BUPIVACAINE/NS/PF - PCEA - 50 ML DISP.SYRIN EP SCH (16:45)
[2020-06-24] MEDS: IBUPROFEN 600 MG TABLET (FP) PO PRN (21:07)
[2020-06-24] MEDS: ACETAMINOPHEN 325 MG TABLET (FP) PO PRN (21:09)
[2020-06-24] MEDS: FERROUS SO4 325 MG TABLET (FP) PO SCH (22:14)
[2020-06-25 08:51] LABS: BASO % 0.1 % (0-2.0); EOS % 0.2 % (0-4.5); HEMATOCRIT 36.7 % (32.4-45.2); HEMOGLOBIN 12.5 GM/dL (10.7-15.3); LYMPH % 17.5 % (8-40); MCH 30.4 pg (25.7-33.7); MCHC 33.9 g/dl (32.0-36.0); MEAN CELL VOLUME 89.6 fl (80-96); MEAN PLT VOLUME 8.7 fl (7.5-11.1); MONO % 5.8 % (3.8-10.2); NEUT % 76.4 % (42.8-82.8); PLATELET COUNT 250 K/MM3 (134-434); RDW 13.2 % (11.6-15.6); WHITE BLOOD COUNT 11.1 K/mm3 (4.0-10.0)
[2020-06-25] MEDS: FERROUS SO4 325 MG TABLET (FP) PO SCH ×2 (09:48→22:03)
[2020-06-25] MEDS: PRENATAL VITAMINS W/ FOLIC ACID TABLET (FP) PO SCH (09:48)
[2020-06-25] MEDS: DEXTROSE 5%-LACTATED RINGERS 1,000 ML IV SCH (19:28)
[2020-06-25] MEDS ORDERED: SENNOSIDES/DOCUSATE COMBO (SENNA PLUS) TABLET (UD) PO PRN (22:00)
[2020-06-25] MEDS: IBUPROFEN 600 MG TABLET (FP) PO PRN (22:03)
[2020-06-25] MEDS: ACETAMINOPHEN 325 MG TABLET (FP) PO PRN (22:04)
[2020-06-26] MEDS: FERROUS SO4 325 MG TABLET (FP) PO SCH (11:08)
[2020-06-26] MEDS: PRENATAL VITAMINS W/ FOLIC ACID TABLET (FP) PO SCH (11:08)
[2020-06-26 12:10] VITALS: BP 124/72; PULSE 62; TEMP 98
[2020-06-27 08:18] LABS: POC NITRAZINE POS
== END 2020-06-26 14:00 | disposition home or self-care (01) | DRG 560 ==
LOC: JLDR 03:00 → J3W 16:30
PROVIDERS: ADMIT Internal Medicine; ATTEND Internal Medicine
PROC: 0W8NXZZ Division of Female Perineum, External Approach (ICD-10-PCS; principal; 2020-06-24)
PROC: 10E0XZZ Delivery of Products of Conception, External Approach (ICD-10-PCS; 2020-06-24)
PROC: 3E0P7VZ Introduction of Hormone into Female Reproductive, Via Natural or Artificial Opening (ICD-10-PCS; 2020-06-24)
DX: O69.1XX0 Labor and delivery complicated by cord around neck, with compression, not applicable or unspecified (principal); Z3A.37 37 weeks gestation of pregnancy; Z37.0 Single live birth
CPT/HCPCS: 36415; 59025; 59409; 76805-25; 76819-TC; 80048; 83986-QW; 85025; 85610; 85730; 86780; 86850; 86900; 86901; G0463-25

== ENCOUNTER 2021-10-26 13:25 | Emergency (ER) | payer OTHER ==
[2021-10-26 13:45] VITALS: TEMP 98; BMI 27.5
[2021-10-26 15:39] LABS: BASO % 0.7 % (0-2.0); EOS % 1.8 % (0-4.5); HEMATOCRIT 38.4 % (32.4-45.2); HEMOGLOBIN 13.1 GM/dL (10.7-15.3); LYMPH % 21.8 % (8-40); MEAN CELL VOLUME 82.2 fl (80-96); MONO % 8.8 % (3.8-10.2); NEUT % 66.9 % (42.8-82.8); PLATELET COUNT 247 10^3/uL (134-434); RBC 4.67 M/mm3 (3.60-5.2); RDW 15.6 % (11.6-15.6); WHITE BLOOD COUNT 8.9 K/mm3 (4.0-10.0)
[2021-10-26 15:52] LABS: INR 1.01 (0.83-1.09); PROTHROMBIN TIME (PATIENT) 11.6 SEC (9.7-13.0)
[2021-10-26 15:59] LABS: EPI CELLS 7 /uL (0-25.1); HYALINE CASTS 0 /uL (0-3.1); PH,URINE 6.5 (5.0-8.0); URINE APPEARANCE CLEAR; URINE BACTERIA 39 /uL (0-1359); URINE BILIRUBIN NEGATIVE (NEGATIVE); URINE COLOR RED; URINE GLUCOSE (UA) NEGATIVE (NEGATIVE); URINE KETONE NEGATIVE (NEGATIVE); URINE LEUK ESTERASE TRACE (NEGATIVE); URINE NITRITE NEGATIVE (NEGATIVE); URINE PROTEIN NEGATIVE (NEGATIVE); URINE RBC 5892 /uL (0-23.9); URINE UROBILINOGEN 0.2 mg/dL (0.2-1.0); URINE WBC 9 /uL (0-25.8)
[2021-10-26 16:01] LABS: ALBUMIN 3.5 g/dl (3.4-5.0); BLOOD UREA NITROGEN 8.7 mg/dL (7-18); CALCIUM 9.1 mg/dL (8.5-10.1)
[2021-10-26 16:04] LABS: CREATININE 0.5 mg/dL (0.55-1.3)
[2021-10-26 16:06] LABS: BILIRUBIN,TOTAL 0.2 mg/dL (0.2-1); TOT PROT 7.2 g/dl (6.4-8.2)
[2021-10-26 17:25] VITALS: BP 118/60; PULSE 72
== END 2021-10-26 17:25 | disposition home or self-care (01) ==
LOC: JER 13:25
DX: O20.9 Hemorrhage in early pregnancy, unspecified (principal); Z3A.01 Less than 8 weeks gestation of pregnancy
CPT/HCPCS: 36415; 76817-TC; 80053; 81003; 84702; 85025; 85610; 86850; 86900; 86901; 87086; 99284-25

== ENCOUNTER 2021-11-01 17:20 | Emergency (ER) | payer OTHER ==
[2021-11-01 17:28] VITALS: BP 113/69; PULSE 89; TEMP 98.4; BMI 24.1
[2021-11-01 19:37] LABS: BASO % 0.6 % (0-2.0); EOS % 2.2 % (0-4.5); HEMATOCRIT 35.8 % (32.4-45.2); HEMOGLOBIN 12.3 GM/dL (10.7-15.3); LYMPH % 33.4 % (8-40); MCH 28.5 pg (25.7-33.7); MCHC 34.3 g/dl (32.0-36.0); MEAN CELL VOLUME 83.2 fl (80-96); MEAN PLT VOLUME 7.5 fl (7.5-11.1); MONO % 6.7 % (3.8-10.2); NEUT % 57.1 % (42.8-82.8); PLATELET COUNT 281 10^3/uL (134-434); RBC 4.31 M/mm3 (3.60-5.2); WHITE BLOOD COUNT 9.3 K/mm3 (4.0-10.0)
[2021-11-01 20:06] LABS: BLOOD UREA NITROGEN 11.8 mg/dL (7-18); CALCIUM 8.5 mg/dL (8.5-10.1)
[2021-11-01 20:07] LABS: ALBUMIN 3.4 g/dl (3.4-5.0)
[2021-11-01 20:09] LABS: CREATININE 0.6 mg/dL (0.55-1.3)
[2021-11-01 20:11] LABS: BILIRUBIN,TOTAL 0.2 mg/dL (0.2-1); TOT PROT 7.1 g/dl (6.4-8.2)
== END 2021-11-01 21:43 | disposition home or self-care (01) ==
LOC: JER 17:20 → JERFT 17:20
DX: O03.9 Complete or unspecified spontaneous abortion without complication (principal)
CPT/HCPCS: 36415; 76817-TC; 80053; 84702; 85025; 99284-25

== ENCOUNTER 2021-12-07 13:17 | Emergency (ER) | payer OTHER ==
[2021-12-07 13:30] VITALS: BP 120/82; PULSE 77; BMI 25.2
[2021-12-07] MEDS ORDERED: SODIUM CHLORIDE 1,000 ML IV STA (13:45)
[2021-12-07 14:30] LABS: BASO % 0.5 % (0-2.0); EOS % 1.7 % (0-4.5); HEMATOCRIT 36.6 % (32.4-45.2); HEMOGLOBIN 12.2 GM/dL (10.7-15.3); LYMPH % 32.8 % (8-40); MCH 27.4 pg (25.7-33.7); MCHC 33.3 g/dl (32.0-36.0); MEAN CELL VOLUME 82.3 fl (80-96); MEAN PLT VOLUME 8.2 fl (7.5-11.1); MONO % 6.9 % (3.8-10.2); NEUT % 58.1 % (42.8-82.8); PLATELET COUNT 284 10^3/uL (134-434); RBC 4.44 M/mm3 (3.60-5.2); WHITE BLOOD COUNT 10.5 K/mm3 (4.0-10.0)
[2021-12-07 14:59] LABS: HCG,QUALITATIVE URINE Negative
[2021-12-07 15:01] LABS: CALCIUM 8.3 mg/dL (8.5-10.1)
[2021-12-07 15:02] LABS: ALBUMIN 3.6 g/dl (3.4-5.0); BLOOD UREA NITROGEN 13.6 mg/dL (7-18)
[2021-12-07 15:03] LABS: EPI CELLS 14 /uL (0-25.1); HYALINE CASTS 1 /uL (0-3.1); URINE APPEARANCE CLEAR; URINE BACTERIA 305 /uL (0-1359); URINE BILIRUBIN NEGATIVE (NEGATIVE); URINE COLOR YELLOW; URINE GLUCOSE (UA) NEGATIVE (NEGATIVE); URINE KETONE NEGATIVE (NEGATIVE); URINE LEUK ESTERASE 1+ (NEGATIVE); URINE NITRITE NEGATIVE (NEGATIVE); URINE PROTEIN TRACE (NEGATIVE); URINE RBC 1337 /uL (0-23.9); URINE UROBILINOGEN 0.2 mg/dL (0.2-1.0); URINE WBC 32 /uL (0-25.8)
[2021-12-07 15:04] LABS: CREATININE 0.7 mg/dL (0.55-1.3)
[2021-12-07 15:06] LABS: BILIRUBIN,TOTAL 0.6 mg/dL (0.2-1); TOT PROT 7.7 g/dl (6.4-8.2)
[2021-12-07] MEDS ORDERED: METHYLERGONOVINE MALEATE 0.2 MG TABLET (FP) PO ONE (17:44)
[2021-12-07 18:22] VITALS: TEMP 97.5
== END 2021-12-07 18:31 | disposition home or self-care (01) ==
LOC: JER 13:17
PROC: 3E0337Z Introduction of Electrolytic and Water Balance Substance into Peripheral Vein, Percutaneous Approach (ICD-10-PCS; principal; 2021-12-07)
DX: N93.9 Abnormal uterine and vaginal bleeding, unspecified (principal)
CPT/HCPCS: 36415; 76830-TC; 80053; 81003; 84702; 84703; 85025; 86850; 86900; 86901; 87086; 99284-25

== ENCOUNTER 2022-12-18 17:58 | Emergency (ER) | payer OTHER ==
[2022-12-18 18:11] VITALS: RESP 18; BMI 26.9
[2022-12-18 19:06] LABS: BASO % 0.4 % (0-2.0); HEMATOCRIT 42.5 % (32.4-45.2); HEMOGLOBIN 14.2 GM/dL (10.7-15.3); LYMPH % 28.5 % (8-40); MCH 28.7 pg (25.7-33.7); MCHC 33.4 g/dl (32.0-36.0); MEAN PLT VOLUME 7.8 fl (7.5-11.1); NEUT % 63.1 % (42.8-82.8); PLATELET COUNT 279 10^3/uL (134-434); RBC 4.94 M/mm3 (3.60-5.2); RDW 12.9 % (11.6-15.6); WHITE BLOOD COUNT 11.5 K/mm3 (4.0-10.0)
[2022-12-18 19:11] LABS: INR 1.01 (0.83-1.09); PROTHROMBIN TIME (PATIENT) 11.7 SEC (9.7-13.0)
[2022-12-18 19:14] LABS: ACTIVATED PTT 28.4 SECONDS (25.2-36.5)
[2022-12-18 19:15] LABS: POTASSIUM 4.1 mmol/L (3.5-5.1)
[2022-12-18 19:16] LABS: CALCIUM 9.5 mg/dL (8.5-10.1)
[2022-12-18 19:17] LABS: BLOOD UREA NITROGEN 8.7 mg/dL (7-18)
[2022-12-18 19:20] LABS: CREATININE 0.6 mg/dL (0.55-1.3)
[2022-12-18 19:26] LABS: HCG,QUALITATIVE URINE Positive
[2022-12-18 19:29] LABS: URINE APPEARANCE CLEAR; URINE BILIRUBIN NEGATIVE (NEGATIVE); URINE COLOR YELLOW; URINE GLUCOSE (UA) NEGATIVE (NEGATIVE); URINE KETONE NEGATIVE (NEGATIVE); URINE LEUK ESTERASE 2+ (NEGATIVE); URINE NITRITE NEGATIVE (NEGATIVE); URINE PROTEIN NEGATIVE (NEGATIVE); URINE RBC 12 /uL (0-23.9); URINE UROBILINOGEN 0.2 mg/dL (0.2-1.0)
[2022-12-18 19:30] LABS: EPI CELLS 31 /uL (0-25.1); HYALINE CASTS 0 /uL (0-3.1); URINE BACTERIA 83 /uL (0-1359); URINE WBC 42 /uL (0-25.8)
[2022-12-18 20:17] VITALS: BP 114/76; PULSE 74; TEMP 98.5
== END 2022-12-18 20:22 | disposition home or self-care (01) ==
LOC: JER 17:58
DX: O20.9 Hemorrhage in early pregnancy, unspecified (principal); O23.41 Unspecified infection of urinary tract in pregnancy, first trimester; R82.71 Bacteriuria; Z3A.09 9 weeks gestation of pregnancy
CPT/HCPCS: 36415; 76801-TC; 80048; 81003; 84702; 84703; 85025; 85610; 85730; 86850; 86900; 86901; 99284-25

== ENCOUNTER 2023-01-12 00:15 | Emergency (ER) | payer OTHER ==
[2023-01-12 00:23] VITALS: BP 111/76; PULSE 82; RESP 20; TEMP 97.5; BMI 28.6
[2023-01-12 02:04] LABS: BASO % 0.4 % (0-2.0); EOS % 1.7 % (0-4.5); HEMATOCRIT 36.7 % (32.4-45.2); HEMOGLOBIN 12.5 GM/dL (10.7-15.3); LYMPH % 28.8 % (8-40); MCH 29.7 pg (25.7-33.7); MCHC 34.1 g/dl (32.0-36.0); MEAN PLT VOLUME 8.4 fl (7.5-11.1); MONO % 9.5 % (3.8-10.2); NEUT % 59.6 % (42.8-82.8); PLATELET COUNT 218 10^3/uL (134-434); RBC 4.21 M/mm3 (3.60-5.2); RDW 12.8 % (11.6-15.6); WHITE BLOOD COUNT 8.5 K/mm3 (4.0-10.0)
[2023-01-12 02:24] LABS: HCG,QUALITATIVE URINE Positive
[2023-01-12 02:25] LABS: BLOOD UREA NITROGEN 8.2 mg/dL (7-18); CALCIUM 8.7 mg/dL (8.5-10.1)
[2023-01-12 02:28] LABS: CREATININE 0.5 mg/dL (0.55-1.3)
[2023-01-12 02:30] LABS: BILIRUBIN,TOTAL 0.1 mg/dL (0.2-1); TOT PROT 6.6 g/dl (6.4-8.2)
[2023-01-12 03:17] LABS: EPI CELLS 6 /uL (0-25.1); HYALINE CASTS 0 /uL (0-3.1); PH,URINE 6.5 (5.0-8.0); URINE APPEARANCE CLEAR; URINE BACTERIA 6 /uL (0-1359); URINE BILIRUBIN NEGATIVE (NEGATIVE); URINE COLOR ORANGE; URINE GLUCOSE (UA) NEGATIVE (NEGATIVE); URINE KETONE NEGATIVE (NEGATIVE); URINE LEUK ESTERASE TRACE (NEGATIVE); URINE NITRITE NEGATIVE (NEGATIVE); URINE PROTEIN NEGATIVE (NEGATIVE); URINE RBC 2600 /uL (0-23.9); URINE WBC 10 /uL (0-25.8)
== END 2023-01-12 04:02 | disposition home or self-care (01) ==
LOC: JER 00:15
DX: O20.0 Threatened abortion (principal); O23.42 Unspecified infection of urinary tract in pregnancy, second trimester; N39.0 Urinary tract infection, site not specified; Z3A.14 14 weeks gestation of pregnancy
CPT/HCPCS: 36415; 76815-TC; 80053; 81003; 84702; 84703; 85025; 86850; 86900; 86901; 99284-25

== ENCOUNTER 2023-04-15 03:05 | Inpatient (IN) | payer OTHER ==
[2023-04-15] MEDS ORDERED: AMPICILLIN SODIUM 2 GM VIAL ONE (03:29)
[2023-04-15] MEDS ORDERED: BETAMET ACET/BETAMET NA PH 30 MG/5 ML VIAL ONE (03:29)
[2023-04-15] MEDS ORDERED: MAGNESIUM 4GM/H20 - 4 GM/100 ML IVPB IVPB ONE (03:51)
[2023-04-15 04:00] VITALS: BMI 27.8
[2023-04-15] MEDS ORDERED: BETAMET ACET/BETAMET NA PH 30 MG/5 ML VIAL IM ONE (04:19)
[2023-04-15] MEDS ORDERED: AMPICILLIN - 2 GM in SODIUM CHLORIDE 100 ML IVPB ONE (04:20)
[2023-04-15] MEDS ORDERED: ELECTROLYTE-148 SOLN 1,000 ML IV SCH (04:30)
[2023-04-15] MEDS ORDERED: MAGNESIUM SULFATE 20GM/500ML - 20 GM/500 ML INFUS.BAG IVPB SCH (04:30)
[2023-04-15] MEDS ORDERED: MAGNESIUM 4GM/H20 - 4 GM/100 ML IVPB IVPB SCH (04:30)
[2023-04-15 04:35] LABS: EPI CELLS 22 /uL (0-25.1); HYALINE CASTS 2 /uL (0-3.1); PH,URINE 6.5 (5.0-8.0); URINE APPEARANCE CLEAR; URINE BACTERIA 646 /uL (0-1359); URINE BILIRUBIN NEGATIVE (NEGATIVE); URINE COLOR YELLOW; URINE GLUCOSE (UA) NEGATIVE (NEGATIVE); URINE KETONE TRACE (NEGATIVE); URINE LEUK ESTERASE 2+ (NEGATIVE); URINE NITRITE NEGATIVE (NEGATIVE); URINE PROTEIN NEGATIVE (NEGATIVE); URINE RBC 1102 /uL (0-23.9); URINE UROBILINOGEN 0.2 mg/dL (0.2-1.0); URINE WBC 309 /uL (0-25.8)
[2023-04-15 04:37] LABS: BASO % 0.2 % (0-2.0); EOS % 0.8 % (0-4.5); HEMATOCRIT 38.3 % (32.4-45.2); HEMOGLOBIN 13.7 GM/dL (10.7-15.3); LYMPH % 17.5 % (8-40); MCH 30.7 pg (25.7-33.7); MCHC 35.9 g/dl (32.0-36.0); MEAN CELL VOLUME 85.5 fl (80-96); MEAN PLT VOLUME 8.3 fl (7.5-11.1); MONO % 7.6 % (3.8-10.2); NEUT % 73.9 % (42.8-82.8); PLATELET COUNT 210 10^3/uL (134-434); RBC 4.48 M/mm3 (3.60-5.2); RDW 13.4 % (11.6-15.6); WHITE BLOOD COUNT 14.5 K/mm3 (4.0-10.0)
[2023-04-15 04:41] LABS: INR 1.04 (0.83-1.09); PROTHROMBIN TIME (PATIENT) 12.1 SEC (9.7-13.0)
[2023-04-15 04:43] LABS: POTASSIUM 3.8 mmol/L (3.5-5.1)
[2023-04-15 04:44] LABS: ACTIVATED PTT 27.1 SECONDS (25.2-36.5); CALCIUM 8.4 mg/dL (8.5-10.1)
[2023-04-15] MEDS ORDERED: ONDANSETRON 4 MG/2 ML VIAL ONE (04:44)
[2023-04-15] MEDS ORDERED: FENTANYL CITRATE/PF 50 MCG/ML VIAL ONE (04:44)
[2023-04-15] MEDS ORDERED: PHENYLEPHRINE HCL 10 MG/1 ML SINGLE DOSE VIAL ONE (04:44)
[2023-04-15] MEDS ORDERED: OXYTOCIN 10 UNITS/ML VIAL ONE (04:44)
[2023-04-15] MEDS ORDERED: KETOROLAC TROMETHAMINE 30 MG/1 ML VIAL ONE (04:44)
[2023-04-15] MEDS ORDERED: morphine SULFATE/PF 1 MG/2 ML (2cc Syringe - QUVA) ONE (04:44)
[2023-04-15 04:45] LABS: BLOOD UREA NITROGEN 5.9 mg/dL (7-18)
[2023-04-15 04:48] LABS: CREATININE 0.4 mg/dL (0.55-1.3)
[2023-04-15] MEDS ORDERED: AZITHROMYCIN IVPB 500 MG/250 ML BAG IVPB ONE ×2 (04:50→05:00)
[2023-04-15] MEDS ORDERED: MAGNESIUM SULFATE 20GM/500ML - 20 GM/500 ML INFUS.BAG ONE (04:51)
[2023-04-15 06:08] LABS: HIV INTERPRETATION NEGATIVE (NEGATIVE)
[2023-04-15] MEDS ORDERED: ACETAMINOPHEN 325 MG TABLET (FP) PO PRN (06:57)
[2023-04-15] MEDS ORDERED: METHYLERGONOVINE MALEATE 0.2 MG/1 ML AMP IM PRN (06:57)
[2023-04-15] MEDS ORDERED: ACETAMINOPHEN 1000 MG/100 ML BAG IVPB PRN (07:01)
[2023-04-15] MEDS ORDERED: ONDANSETRON 4 MG/2 ML VIAL IVPUSH PRN (07:17)
[2023-04-15] MEDS: OXYTOCIN 20 UNITS in 0.9% NS 20 UNIT/1,000 ML INFUS.BAG IV SCH ×3 (07:45→18:49)
[2023-04-15] MEDS: CEFAZOLIN 1 GM in DEXTROSE 5%-WATER - 50 ML IVPB SCH ×2 (15:29→22:39)
[2023-04-15] MEDS ORDERED: oxyCODONE HCL 5 MG TABLET PO PRN ×2 (18:57)
[2023-04-15] MEDS: SIMETHICONE 80 MG TAB.CHEW (FP) PO PRN (20:58)
[2023-04-15] MEDS: IBUPROFEN 600 MG TABLET (FP) PO PRN (20:58)
[2023-04-16] MEDS: CEFAZOLIN 1 GM in DEXTROSE 5%-WATER - 50 ML IVPB SCH (06:04)
[2023-04-16] MEDS ORDERED: BISACODYL 10 MG SUPP.RECT RC PRN (06:57)
[2023-04-16 08:28] LABS: BASO % 0.1 % (0-2.0); HEMOGLOBIN 11.5 GM/dL (10.7-15.3); LYMPH % 14.7 % (8-40); MCH 30.1 pg (25.7-33.7); MCHC 33.8 g/dl (32.0-36.0); MONO % 6.4 % (3.8-10.2); NEUT % 78.8 % (42.8-82.8); PLATELET COUNT 241 10^3/uL (134-434); RBC 3.82 M/mm3 (3.60-5.2); WHITE BLOOD COUNT 16.7 K/mm3 (4.0-10.0)
[2023-04-16] MEDS: ENOXAPARIN NA (PORCINE) 40 MG/0.4 ML DISP.SYRIN SQ SCH (10:17)
[2023-04-16] MEDS: IBUPROFEN 600 MG TABLET (FP) PO PRN ×2 (10:18→19:18)
[2023-04-16] MEDS: SIMETHICONE 80 MG TAB.CHEW (FP) PO PRN (19:18)
[2023-04-17] MEDS: SIMETHICONE 80 MG TAB.CHEW (FP) PO PRN ×2 (05:18→19:42)
[2023-04-17] MEDS: IBUPROFEN 600 MG TABLET (FP) PO PRN ×2 (05:18→19:41)
[2023-04-17] MEDS ORDERED: DOCUSATE SODIUM 100 MG CAPSULE (FP) PO PRN (08:17)
[2023-04-17] MEDS: ENOXAPARIN NA (PORCINE) 40 MG/0.4 ML DISP.SYRIN SQ SCH (10:07)
[2023-04-18 08:22] LABS: BASO % 0.5 % (0-2.0); EOS % 2.4 % (0-4.5); HEMATOCRIT 31.4 % (32.4-45.2); HEMOGLOBIN 10.5 GM/dL (10.7-15.3); LYMPH % 31.6 % (8-40); MCH 29.7 pg (25.7-33.7); MCHC 33.6 g/dl (32.0-36.0); MEAN CELL VOLUME 88.4 fl (80-96); MEAN PLT VOLUME 7.6 fl (7.5-11.1); MONO % 6.5 % (3.8-10.2); PLATELET COUNT 231 10^3/uL (134-434); RBC 3.55 M/mm3 (3.60-5.2); WHITE BLOOD COUNT 9.2 K/mm3 (4.0-10.0)
[2023-04-18] MEDS: ENOXAPARIN NA (PORCINE) 40 MG/0.4 ML DISP.SYRIN SQ SCH (10:18)
[2023-04-18] MEDS: IBUPROFEN 600 MG TABLET (FP) PO PRN (10:18)
[2023-04-18] MEDS: SIMETHICONE 80 MG TAB.CHEW (FP) PO PRN (10:19)
[2023-04-18 11:57] VITALS: BP 103/70; PULSE 80; RESP 16; TEMP 97.9
== END 2023-04-18 11:25 | disposition home or self-care (01) | DRG 540 ==
LOC: JDEL 03:05 → JLDR 03:20 → J3W 08:15
PROVIDERS: ADMIT Obstetrics & Gynecology; ATTEND Obstetrics & Gynecology
PROC: 10D00Z1 Extraction of Products of Conception, Low, Open Approach (ICD-10-PCS; principal; 2023-04-15)
DX: O32.8XX0 Maternal care for other malpresentation of fetus, not applicable or unspecified (principal); O60.12X0 Preterm labor second trimester with preterm delivery second trimester, not applicable or unspecified; Z3A.26 26 weeks gestation of pregnancy; Z37.0 Single live birth
CPT/HCPCS: 36415; 80048; 81003; 85025; 85610; 85730; 86780; 86850; 86900; 86901; 87086; 87389; 88307-TC; 94010

== ENCOUNTER 2023-05-21 05:11 | Emergency (ER) | payer SELFPAY ==
[2023-05-21 05:22] VITALS: RESP 18; BMI 27.9
[2023-05-21 06:28] LABS: BASO % 0.7 % (0-2.0); EOS % 2.3 % (0-4.5); HEMATOCRIT 40.2 % (32.4-45.2); HEMOGLOBIN 13.4 GM/dL (10.7-15.3); LYMPH % 28.9 % (8-40); MCH 28.9 pg (25.7-33.7); MCHC 33.2 g/dl (32.0-36.0); MEAN CELL VOLUME 86.8 fl (80-96); MEAN PLT VOLUME 7.3 fl (7.5-11.1); MONO % 7.7 % (3.8-10.2); NEUT % 60.4 % (42.8-82.8); PLATELET COUNT 285 10^3/uL (134-434); RBC 4.63 M/mm3 (3.60-5.2); RDW 12.5 % (11.6-15.6); WHITE BLOOD COUNT 10.1 K/mm3 (4.0-10.0)
[2023-05-21 06:42] LABS: INR 1.03 (0.83-1.09)
[2023-05-21 06:45] LABS: ACTIVATED PTT 29.9 SECONDS (25.2-36.5)
[2023-05-21 06:49] LABS: EPI CELLS 18 /uL (0-25.1); HYALINE CASTS 0 /uL (0-3.1); URINE APPEARANCE CLEAR; URINE BACTERIA 131 /uL (0-1359); URINE BILIRUBIN NEGATIVE (NEGATIVE); URINE COLOR YELLOW; URINE GLUCOSE (UA) NEGATIVE (NEGATIVE); URINE KETONE NEGATIVE (NEGATIVE); URINE LEUK ESTERASE 1+ (NEGATIVE); URINE NITRITE NEGATIVE (NEGATIVE); URINE PROTEIN NEGATIVE (NEGATIVE); URINE RBC 10 /uL (0-23.9); URINE UROBILINOGEN 0.2 mg/dL (0.2-1.0); URINE WBC 38 /uL (0-25.8)
[2023-05-21 06:50] LABS: POTASSIUM 4.1 mmol/L (3.5-5.1)
[2023-05-21 06:53] LABS: CALCIUM 8.4 mg/dL (8.5-10.1)
[2023-05-21 06:54] LABS: ALBUMIN 3.7 g/dl (3.4-5.0)
[2023-05-21 06:57] LABS: CREATININE 0.6 mg/dL (0.55-1.3)
[2023-05-21 06:58] LABS: BILIRUBIN,TOTAL 0.4 mg/dL (0.2-1); TOT PROT 7.3 g/dl (6.4-8.2)
[2023-05-21 12:51] VITALS: BP 120/77; PULSE 77; TEMP 99
== END 2023-05-21 12:56 | disposition home or self-care (01) ==
LOC: JER 05:11
DX: R10.30 Lower abdominal pain, unspecified (principal); N39.0 Urinary tract infection, site not specified
CPT/HCPCS: 36415; 74177-TC; 76856-TC; 80053; 81003; 84703; 85025; 85610; 85730; 87086; 99285-25; Q9967